=== PATIENT | male | born 1975 | race Caucasian/White ===

== ENCOUNTER → 2018-09-07 11:17 | Outpatient (CLI) | payer MEDICARE ==
[~2018-09-07 11:17] MED LIST: HYDROCODON-ACE1 EA10 PO
[2018-10-16 09:38] VITALS: BMI 30.3
== END | disposition home or self-care (01) ==
LOC: D.NM 11:17 → D.US 09-08 09:30
PROVIDERS: ATTEND Internal Medicine Gastroenterology
DX: R10.9 Unspecified abdominal pain (principal); R11.0 Nausea

== ENCOUNTER → 2018-09-08 09:16 | Outpatient (CLI) | payer MEDICARE | END | disposition home or self-care (01) | LOC: D.US 09:16 | PROVIDERS: ATTEND Internal Medicine Gastroenterology | DX: R10.9 Unspecified abdominal pain (principal); R11.0 Nausea ==

== ENCOUNTER → 2018-09-11 11:01 | Outpatient (CLI) | payer MEDICARE | END | disposition home or self-care (01) | LOC: D.US 11:01 | PROVIDERS: ATTEND Internal Medicine Gastroenterology | DX: R10.9 Unspecified abdominal pain (principal); R11.0 Nausea ==

== ENCOUNTER → 2018-09-24 07:50 | Outpatient (CLI) | payer MEDICARE | END | disposition home or self-care (01) | LOC: D.NM 07:50 | PROVIDERS: ATTEND Internal Medicine Gastroenterology | DX: R10.13 Epigastric pain (principal); R11.0 Nausea; K21.9 Gastro-esophageal reflux disease without esophagitis; R14.0 Abdominal distension (gaseous) ==

== ENCOUNTER 2018-10-16 07:44 | Day surgery (SDC) | payer MEDICARE ==
[~2018-10-16] VITALS: Ht 175.3 cm; Wt 93.0 kg
--- NOTE | ~2018-10-16 | OP ---
PATIENT NAME: ANTHONY SAUL MEDICAL RECORD: [id number] :73 LOCATION:D.OPS ADMISSION DATE: SURGEON: REGAN PRATT MD DATE OF OPERATION: 10/16/2018 PREOPERATIVE DIAGNOSES: 1. Biliary dyskinesia. 2. Tobacco dependence syndrome. 3. Gout. 4. Fibromyalgia. POSTOPERATIVE DIAGNOSES: 1. Biliary dyskinesia. 2. Tobacco dependence syndrome. 3. Gout. 4. Fibromyalgia. PROCEDURE: Laparoscopic cholecystectomy. SURGEON: Regan Pratt MD REPORT OF PROCEDURE: The patient's abdomen was prepped and draped in sterile fashion. A cutdown was made on the superior aspect of the umbilicus, 0 Vicryls were placed in the fascia bilaterally and the fascia was incised with 15-blade. I then bluntly entered the peritoneal cavity and placed a 12-mm Saulo port. Under direct visualization, a 5 mm trocar was placed in the epigastrium and 2 more 5-mm trocars were placed in the right subcostal region. The gallbladder was grasped and elevated. There was no sign of any inflammatory changes. The cystic artery and cystic duct were dissected free and I had my critical view of safety. These structures were clipped proximally and distally and ligated in a standard fashion. The gallbladder was then taken off the liver bed using electrocautery. The right upper quadrant was irrigated out and any bleeding that was found was treated with electrocautery. At this point, the ports and insufflation were then removed and the gallbladder was taken out through the umbilicus. The umbilical fascia was closed with interrupted 0 Vicryls times 3. The wounds were then irrigated out with normal saline and infused with 10 mL of 0.25% Marcaine with epinephrine. The skin incisions were all closed with subcutaneous 5-0 Monocryl and dressed appropriately. COMPLICATIONS: None. CONDITION: Stable. ANESTHESIA: General endotracheal and local. BLOOD LOSS: Minimal. 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
[2018-10-16 09:38] VITALS: BP 117/69; Ht 175.3 cm; Wt 93.0 kg
[2018-10-16 09:46] LABS: BASOPHILS 0.1 % (0-2); CALC OSMOLALITY 280 mosm/kg (275-300); CALCIUM 8.7 mg/dL (8.5-10.1); CARBON DIOXIDE 28.6 mmol/L (21.0-32.0); CHLORIDE - SERUM 106 mmol/L (98-107); EOSINOPHILS 4.9 % (0-7); GLUCOSE 101 mg/dL (74-106); HEMATOCRIT 46.3 % (42.0-54.0); HEMOGLOBIN 16.3 g/dL (13.5-17.5); IMMATURE GRANULOCYTES 0.2 % (0-5); LYMPHOCYTES 36.5 % (15-50); MCH 30.9 pg (26.0-34.0); MCHC 35.2 g/dL (31.0-37.0); MCV 87.9 fL (80.0-100.0); MONOCYTES 9.8 % (2-11); NEUTROPHILS 48.5 % (40-80); PLATELET COUNT 225 10x3/uL (130-400); POTASSIUM - SERUM 4.1 mmol/L (3.5-5.1); RBC 5.27 10x6/uL (4.20-6.10); RDW 12.7 % (11.5-14.5); SODIUM 141 mmol/L (136-145); UREA NITROGEN 12 mg/dL (7-18); WBC 8.9 10x3/uL (4.8-10.8); eGFR NON AFRICAN AMERICAN 87 mL/min (90-120)
[2018-10-16] MEDS ORDERED: HYDROCODON-ACE1 EA10 PO (14:13)
== END 2018-10-16 16:30 | disposition home or self-care (01) ==
LOC: D.OPS 07:44 → D.PAN 10:00 → D.OPS 10:30
PROVIDERS: ATTEND Surgery
DX: K82.8 Other specified diseases of gallbladder (principal); F17.200 Nicotine dependence, unspecified, uncomplicated; M10.9 Gout, unspecified; M79.7 Fibromyalgia; Z01.812 Encounter for preprocedural laboratory examination